=== PATIENT | female | born 1995 | race Caucasian/White ===

== ENCOUNTER 2016-11-10 21:36 | Emergency (ER) | payer BC, MEDICAID ==
--- NOTE | 2016-11-10 21:51 | EDM.PDOC ---
ED HPI GENERAL MEDICAL PROBLEM - General Stated Complaint: 7WEEKS/BLEEDING Time Seen by Provider: 11/10/16 21:51 Source of Information: Reports: Patient History Limitations: Reports: No Limitations - History of Present Illness INITIAL COMMENTS - FREE TEXT/NARRATIVE: HISTORY AND PHYSICAL: History of present illness: [21-year-old female primary proximally 7 weeks by dates now presents emergency department with complaint of vaginal bleeding. Patient states she's having bleeding that's comparable to menstrual bleeding. She is known to be by outpatient test however she has not had any pelvic imaging previously. Patient does not know her blood type her Rh status. She has no history of anemia and no lightheadedness or near syncope. Patient is otherwise asymptomatic. Normal bowel and bladder habits. She has no pain specifically no pelvic pain] patient anticipates care by Dr. Ponce however she has not seen him yet Review of systems: As per history of present illness and below otherwise all systems reviewed and negative. Past medical history: As per history of present illness and as reviewed below otherwise noncontributory. Surgical history: As per history of present illness and as reviewed below otherwise noncontributory. Social history: No reported history of drug or alcohol abuse. Family history: As per history of present illness and as reviewed below otherwise noncontributory. Physical exam: Well-appearing patient smiling and comfortable appearing. No pallor. Normal respiratory rate no tachycardia benign abdomen anterior pelvis. No CVA tenderness normal external HEENT: Normocephalic, atraumatic, pupils normal and symmetrical, supple neck, no meningismus, normal color Lungs: Normal and symmetrical chest wall excursion bilateral with no tachypnea or increased work of breathing, grossly normal chest exam Heart: No tachycardia in triage Abdomen: Normal-appearing, nondistended, no visible mass or asymmetry Pelvis: Normal-appearing Genitourinary: Deferred Rectal exam: Deferred Extremities: Atraumatic, normal use and range of motion, no visible evidence of gross neurovascular compromise Neuro: Awake, alert, oriented. Normal and appropriate mental status. Cranial nerves grossly unremarkable. Motor function normal. Nonfocal neurologic exam. Diagnostics: [Ultrasound pelvis] Therapeutics: [] Impression: [] Plan: [Signs and symptoms consistent with threatened miscarriage versus miscarriage and well-appearing patient. Full workup pending including ultrasound, quantitative hCG, Rh status. Patient has not had any pain as part of her presentation and she has vaginal bleeding only no discharge. Hemoglobin unremarkable. Rh+. Onset of hCG noted. Ultrasound shows 6 weeks 4 day gestation with no heart activity passing blood with subchorionic hemorrhage consistent with incomplete miscarriage. Case discussed with patient' s TURBINE ATTENDANT doctor Dr. Ponce was aware of history and findings and agrees with outpatient follow-up in the next one to 2 days. Patient comfortable and hemodynamically stable on reevaluation prior to discharge and agrees with outpatient follow-up strict return precautions given. Definitive disposition and diagnosis as appropriate pending reevaluation and review of above. - Related Data Allergies Allergy/AdvReac Type Severity Reaction Status Date / Time amoxicillin trihydrate Allergy Rash Verified 11/10/16 22:18 [From Augmentin] Penicillins Allergy Rash Verified 11/10/16 22:18 potassium clavulanate Allergy Rash Verified 11/10/16 22:18 [From Augmentin] Home Meds: Home Meds Albuterol [Take Home: Albuterol 0.083%, 4 Neb Pack] ASDIRECTED PRN 02/04/15 [ History] Fluticasone/Salmeterol [Advair 250-50 Diskus] 2 puff INH BID 02/04/15 [History] Loratadine [Claritin] 10 mg PO DAILY 02/04/15 [History] Montelukast [Singulair] 10 mg PO BEDTIME 02/04/15 [History] Past Medical History - Past Health History Medical/Surgical History: Denies Medical/Surgical History Respiratory History: Reports: Asthma - Past Surgical History HEENT Surgical History: Reports: Tonsillectomy Social & Family History - Family History Family Medical History: Noncontributory HEENT: Reports: None Cardiac: Reports: None Respiratory: Reports: None GI: Reports: None Neurological: Reports: None Psychiatric: Reports: None Dermatologic: Reports: None Oncologic: Reports: None - Tobacco Use Smoking Status *Q: Never Smoker Second Hand Smoke Exposure: No - Recreational Drug Use Recreational Drug Use: No ED ROS GENERAL - Review of Systems Review Of Systems: See Below (History of present illness) ED EXAM, GENERAL - Physical Exam Exam: See Below (History of present illness) Course - Vital Signs Last Recorded V/S: Last Vital Signs Temp 36.7 C 11/10/16 21:44 Pulse 98 11/10/16 21:44 Resp 18 11/10/16 21:44 BP 106/76 11/10/16 21:44 Pulse Ox 96 11/10/16 21:44 - Orders/Labs/Meds Orders: Active Orders 24 hr Category Date Time Status OB Transvaginal [US] Stat Exams 11/10/16 22:07 Taken Labs: Laboratory Tests 11/10/16 11/10/16 11/10/16 Range/Units 22:13 22:13 22:13 Hgb 13.2 (12.0-16.0) g/dL Hct 38.3 (36.0-46.0) % HCG, Quant 42834.7 mIU/mL Blood Type O POSITIVE Departure - Departure Time of Disposition: 00:04 Disposition: Home, Self-Care 01 Condition: Good Clinical Impression: Incomplete miscarriage - Discharge Information Instructions: Miscarriage, [id number] Referrals: Austin Bealsey MD [Primary Care Provider] - Charlie Ponce MD [Family Provider] - Forms: ED Department Discharge Additional Instructions: You are having a miscarriage. Rest and drink plenty of fluids. You are Rh+ which were first your blood type is important for you to remember for future pregnancies. Your hemoglobin or blood level was normal today. Is very important follow-up with Dr. Ponce in the next one to 2 days. Call in the morning for an appointment and return immediately for new severe or worsening symptoms specifically for severe bleeding, uncontrolled pain, fainting, or nearly fainting. - My Orders Last 24 Hours: My Active Orders 11/10/16 22:07 OB Transvaginal [US] Stat - Assessment/Plan Last 24 Hours: My Active Orders 11/10/16 22:07 OB Transvaginal [US] Stat
[2016-11-11 01:01] VITALS: BP 110/70
--- NOTE | 2016-11-11 15:42 | US ---
EXAM DATE: 11/10/16 PATIENT'S AGE: 21 Patient: HARINI SÁNCHEZ Facility: [place], [place] Site . Site : 1996 Study: US OB Pelvis [id number]/[id number] 11:04:25 PM Ordering Physician: Braulio Paz Final Report: INDICATION: BLEEDING EARLY PREG TECHNIQUE: OB ultrasound. COMPARISON: None. FINDINGS : Single intrauterine . Per elevator service technician no cardiac activity recorded. The crown-rump length measures 0.6 cm with an estimated sonographic gestational age of 6 weeks 4 days. The gestational sac is irregularly contoured. Along the inferior aspect of the gestational sac is a subchorionic hemorrhage which measures approximately 1.2 x 1.7 cm. Fluid noted within the cervical canal. Both ovaries are visualized and normal in sonographic appearance aside from a corpus luteal cyst arising from the right ovary. IMPRESSION: Intrauterine . No cardiac activity recorded during the examination. Additionally the gestation sac is irregularly contoured with an associated subchorionic hemorrhage and fluid within the cervical canal. Findings are consistent with an ongoing . Please correlate with serial beta HCG and pelvic ultrasound. Dictated by Camron Kurtz MD @ 11/10/2016 11:22:10 PM Dictated by: Camron Kurtz MD @ 11/10/2016 23:22:34 (Electronic Signature) Report Signed by Proxy. [facility]ID[facility] MEDICAL CENTERGustavo
== END 2016-11-11 00:20 | disposition home or self-care (01) ==
LOC: MW.ED 21:36
DX: O03.4 Incomplete spontaneous abortion without complication (principal); J45.909 Unspecified asthma, uncomplicated; Z88.1 Allergy status to other antibiotic agents; Z88.0 Allergy status to penicillin; Z79.899 Other long term (current) drug therapy
CPT/HCPCS: 36415; 76817; 76817-26; 84702; 85014; 85018; 86900; 86901; 99283; 99284-25

== ENCOUNTER 2016-11-15 10:41 | Day surgery (SDC) | payer BC, MEDICAID ==
[2016-11-15] MEDS ORDERED: Midazolam 1 MG/ML 2 ML SDV ONE (10:49)
[2016-11-15] MEDS ORDERED: Lidocaine 2% 5 ML SDV ONE (10:49)
[2016-11-15] MEDS ORDERED: fentaNYL 100 MCG/2 ML SDV ONE ×2 (10:49→10:50)
[2016-11-15] MEDS ORDERED: Propofol 200 MG/20 ML SDV ONE (10:49)
[2016-11-15] MEDS ORDERED: Lactated Ringers 1,000 ML IV SCH (12:00)
--- NOTE | 2016-11-15 12:16 | PCM.PREANE ---
Preanesthetic Assessment - Anesthesia/Transfusion/Family Hx Anesthesia History: Prior Anesthesia Without Reaction Family History of Anesthesia Reaction: No Transfusion History: No Prior Transfusion(s) - Review of Systems General: No Symptoms Pulmonary: No Symptoms Cardiovascular: No Symptoms Gastrointestinal: No Symptoms Neurological: No Symptoms Other: Reports: None - Physical Assessment NPO Status Date: 11/14/16 O2 Sat by Pulse Oximetry: 97 Respiratory Rate: 16 Vital Signs: Last Vital Signs Temp 36.3 C 11/15/16 11:49 Pulse 81 11/15/16 11:49 Resp 16 11/15/16 11:49 BP 114/65 11/15/16 11:49 Pulse Ox 97 11/15/16 11:49 Height: 1.6 m Weight: 116.12 kg ASA Class: 2 Mental Status: Alert & Oriented x3 Dentition: Reports: Normal Dentition ROM/Head Extension: Full Lungs: Clear to Auscultation, Normal Respiratory Effort Cardiovascular: Regular Rate, Regular Rhythm - Allergies Allergies/Adverse Reactions: Allergies Allergy/AdvReac Type Severity Reaction Status Date / Time amoxicillin trihydrate Allergy Rash Verified 11/10/16 22:18 [From Augmentin] Penicillins Allergy Rash Verified 11/10/16 22:18 potassium clavulanate Allergy Rash Verified 11/10/16 22:18 [From Augmentin] - Blood Blood Available: Yes - Acknowledgements Anesthesia Type Planned: General Anesthesia, MAC (asthma, [place]) Pt an Appropriate Candidate for the Planned Anesthesia: Yes Alternatives and Risks of Anesthesia Discussed w Pt/Guardian: Yes Pt/Guardian Understands and Agrees with Anesthesia Plan: Yes PreAnesthesia Questionnaire - Past Health History Medical/Surgical History: Denies Medical/Surgical History HEENT History: Reports: Allergic Rhinitis, Other (See Below) Other HEENT History: wears glasses Respiratory History: Reports: Asthma Other Respiratory History: Seasonal Allergies Other OB/BYN History: no previous pregnancies, miscarriage at present Psychiatric History: Endocrine/Metabolic History: Reports: Obesity/BMI 30+ - Past Surgical History Head Surgeries/Procedures: Reports: None HEENT Surgical History: Reports: Tonsillectomy - SUBSTANCE USE Smoking Status *Q: Never Smoker Second Hand Smoke Exposure: No Recreational Drug Use History: No - HOME MEDS Home Medications: Home Meds Fluticasone/Salmeterol [Advair 250-50 Diskus] 1 puff INH BID 02/04/15 [History] Loratadine [Claritin] 10 mg PO DAILY 02/04/15 [History] Montelukast [Singulair] 10 mg PO BEDTIME 02/04/15 [History] Albuterol [IMW: Albuterol HFA] 2 puff INH ASDIRECTED PRN 11/15/16 [History] - CURRENT (IN HOUSE) MEDS Current Meds: Current Medications Lactated Ringer's (Ringers, Lactated) 1,000 mls @ 100 mls/hr IV ASDIRECTED JEAN Discontinued Medications Fentanyl (Sublimaze) Confirm Administered Dose 100 mcg .ROUTE .STK-MED ONE Stop: 11/15/16 10:50 Fentanyl (Sublimaze) Confirm Administered Dose 100 mcg .ROUTE .STK-MED ONE Stop: 11/15/16 10:51 Lidocaine (Xylocaine-Mpf 2%) Confirm Administered Dose 10 ml .ROUTE .STK-MED ONE Stop: 11/15/16 10:50 Midazolam HCl (Versed 1 Mg/Ml) Confirm Administered Dose 2 mg .ROUTE .STK-MED ONE Stop: 11/15/16 10:50 Propofol (Diprivan 20 Ml) Confirm Administered Dose 400 mg .ROUTE .STK-MED ONE Stop: 11/15/16 10:50
[2016-11-15] MEDS ORDERED: Acetaminophen/oxyCODONE 325-5 MG Tab PO PRN ×2 (12:38)
[2016-11-15] MEDS ORDERED: Morphine 4 MG/ML Syringe IVPUSH PRN (12:38)
[2016-11-15] MEDS ORDERED: Ketorolac 30 MG/ML SDV IVPUSH ONE (12:38)
[2016-11-15] MEDS ORDERED: Morphine 2 MG/ML Syringe IVPUSH PRN (12:38)
[2016-11-15] MEDS ORDERED: Ondansetron 4 MG/2 ML SDV IVPUSH PRN (12:38)
[2016-11-15] MEDS ORDERED: Promethazine 25 MG/ML SDV IM PRN (12:38)
--- NOTE | 2016-11-15 12:43 | PCM.OPNOTE ---
- General Post-Op/Procedure Note Date of Surgery/Procedure: 11/15/16 Operative Procedure(s): D&E Pre Op Diagnosis: Blighted ovum Post-Op Diagnosis: Same Anesthesia Technique: General LMA Primary Surgeon: Charlie Ponce EBL in mLs: 100 Complications: None Condition: Good Free Text/Narrative:: Intake & Output 11/14/16 11/15/16 11/15/16 22:59 06:59 14:59 Output Total 30 Balance -30
--- NOTE | 2016-11-15 12:44 | PCM.DCSUM1 ---
Discharge Summary - Discharge Data Discharge Date: 11/15/16 Discharge Disposition: Home, Self-Care 01 Condition: Good - Patient Summary/Data Operative Procedure(s) Performed: D&E - Patient Instructions Diet: Usual Diet as Tolerated Activity: As Tolerated Driving: Do Not Drive Showering/Bathing: June Shower Notify Provider of: Fever, Increased Pain - Discharge Plan Home Medications: Home Meds Fluticasone/Salmeterol [Advair 250-50 Diskus] 1 puff INH BID 02/04/15 [History] Loratadine [Claritin] 10 mg PO DAILY 02/04/15 [History] Montelukast [Singulair] 10 mg PO BEDTIME 02/04/15 [History] Albuterol [IMW: Albuterol HFA] 2 puff INH ASDIRECTED PRN 11/15/16 [History] - General Info Date of Service: 11/15/16 Functional Status: Reports: Pain Controlled - Review of Systems General: Reports: No Symptoms HEENT: Reports: No Symptoms Pulmonary: Reports: No Symptoms Cardiovascular: Reports: No Symptoms Gastrointestinal: Reports: No Symptoms Genitourinary: Reports: No Symptoms Musculoskeletal: Reports: No Symptoms Skin: Reports: No Symptoms Neurological: Reports: No Symptoms Psychiatric: Reports: No Symptoms - Patient Data Vitals - Most Recent: Last Vital Signs Temp 36.3 C 11/15/16 11:49 Pulse 81 11/15/16 11:49 Resp 16 11/15/16 12:16 BP 114/65 11/15/16 11:49 Pulse Ox 97 11/15/16 12:16 Weight - Most Recent: 116.12 kg I&O - Last 24 hours: Intake & Output 11/14/16 11/15/16 11/15/16 22:59 06:59 14:59 Output Total 30 Balance -30 Lab Results - Last 24 hrs: Laboratory Results - last 24 hr 11/15/16 Range/Units 12:13 WBC 9.63 (4.0-11.0) K/uL RBC 4.37 (4.30-5.90) M/uL Hgb 13.1 (12.0-16.0) g/dL Hct 37.5 (36.0-46.0) % MCV 85.8 (80.0-98.0) fL MCH 30.0 (27.0-32.0) pg MCHC 34.9 (31.0-37.0) g/dL RDW Std Deviation 39.3 (28.0-62.0) fl RDW Coeff of Haim 13 (11.0-15.0) % Plt Count 225 (150-400) K/uL MPV 9.30 (7.40-12.00) fL Nucleated RBC % 0.0 /100WBC Nucleated RBCs # 0 K/uL Med Orders - Current: Current Medications Lactated Ringer's (Ringers, Lactated) 1,000 mls @ 100 mls/hr IV ASDIRECTED JEAN Ketorolac Tromethamine (Toradol) 30 mg IVPUSH Q6H PRN PRN Reason: Pain (severe 7-10) Stop: 11/20/16 18:01 Morphine Sulfate (Morphine) 2 mg IVPUSH Q2H PRN PRN Reason: Pain (severe 7-10) Morphine Sulfate (Morphine) 4 mg IVPUSH Q2H PRN PRN Reason: Pain (severe 7-10) Ondansetron HCl (Zofran) 4 mg IVPUSH Q6H PRN PRN Reason: Nausea/Vomiting Oxycodone/Acetaminophen (Percocet 325-5 Mg) 1 tab PO Q4H PRN PRN Reason: Pain (moderate 4-6) Oxycodone/Acetaminophen (Percocet 325-5 Mg) 2 tab PO Q4H PRN PRN Reason: Pain (moderate 4-6) Promethazine HCl (Phenergan) 25 mg IM Q6H PRN PRN Reason: Nausea/Vomiting Discontinued Medications Fentanyl (Sublimaze) Confirm Administered Dose 100 mcg .ROUTE .STK-MED ONE Stop: 11/15/16 10:50 Fentanyl (Sublimaze) Confirm Administered Dose 100 mcg .ROUTE .STK-MED ONE Stop: 11/15/16 10:51 Ketorolac Tromethamine (Toradol) 30 mg IVPUSH ONETIME ONE Stop: 11/15/16 12:39 Lidocaine (Xylocaine-Mpf 2%) Confirm Administered Dose 10 ml .ROUTE .STK-MED ONE Stop: 11/15/16 10:50 Midazolam HCl (Versed 1 Mg/Ml) Confirm Administered Dose 2 mg .ROUTE .STK-MED ONE Stop: 11/15/16 10:50 Propofol (Diprivan 20 Ml) Confirm Administered Dose 400 mg .ROUTE .[facility]-MED ONE Stop: 11/15/16 10:50 - Exam General: Reports: Alert, Oriented HEENT: Reports: Pupils Equal, Pupils Reactive, EOMI, Mucous Membr. Moist/[place] Neck: Reports: Supple Lungs: Reports: Clear to Auscultation, Normal Respiratory Effort Cardiovascular: Reports: Regular Rate, Regular Rhythm GI/Abdominal Exam: Normal Bowel Sounds, Soft, Non-Tender, No Organomegaly, No Distention, No Abnormal Bruit, No Mass, Pelvis Stable (Female) Exam: Normal External Exam, Normal Speculum Exam, Normal Bimanual Exam Rectal (Female) Exam: Normal Exam, Normal Rectal Tone Back Exam: Reports: Normal Inspection, Full Range of Motion Extremities: Normal Inspection, Normal Range of Motion, Non-Tender, No Pedal Edema, Normal Capillary Refill Skin: Reports: Warm, Dry, Intact Wound/Incisions: Reports: Healing Well Neurological: Reports: No New Focal Deficit Psy/Mental Status: Reports: Alert, Normal Affect, Normal Mood *Q Meaningful Use (DIS) - VTE *Q VTE Criteria *Q: - Stroke *Q Stroke Criteria *Q: - AMI *Q AMI Criteria *Q:
--- NOTE | 2016-11-15 13:12 | PCM.POSTAN ---
POST ANESTHESIA ASSESSMENT - MENTAL STATUS Mental Status: Alert, Oriented - RESPIRATORY Respiratory Status: Respiratory Rate WNL, Airway Patent, O2 Saturation Stable - CARDIOVASCULAR CV Status: Pulse Rate WNL, Blood Pressure Stable - GASTROINTESTINAL GI Status: No Symptoms - PAIN Pain Score: 0 - POST OP HYDRATION Hydration Status: Adequate & Stable
--- NOTE | 2016-11-15 13:22 | PCM48HPAN ---
Post Anesthesia Note - EVALUATION WITHIN 48HRS OF ANESTHETIC Vital Signs in Normal Range: Yes Patient Participated in Evaluation: Yes Respiratory Function Stable: Yes Airway Patent: Yes Cardiovascular Function Stable: Yes Hydration Status Stable: Yes Pain Control Satisfactory: Yes Nausea and Vomiting Control Satisfactory: Yes Mental Status Recovered: Yes
[2016-11-15 14:04] VITALS: BP 118/69
[2016-11-15] MEDS ORDERED: Ketorolac 30 MG/ML SDV IVPUSH PRN (18:00)
--- NOTE | 2016-11-15 20:19 | OR ---
SURGEON: Charlie Ponce MD DATE OF PROCEDURE: 11/15/2016 PREOPERATIVE DIAGNOSIS: Blighted ovum. POSTOPERATIVE DIAGNOSIS: Blighted ovum. OPERATION PERFORMED: Dilatation and evacuation. EDGE TRIMMER: OR tech. ANESTHESIA: General LMA, Emmy Coffman. ESTIMATED BLOOD LOSS: 100 mL. COMPLICATION: None. FINDINGS: Products of conception. INDICATIONS FOR SURGERY: This patient is 21, she is seen by our nurse risk developer. She had repeated ultrasound, confirmed pole, no cardiac activity. She was seen in the ER for this same problem when she had an ultrasound and she had confirmed blighted ovum. The patient elected to have a D and E. PROCEDURE IN DETAIL: The patient was brought to the OR, properly identified, and after adequate level of anesthesia, the patient was placed in lithotomy position. Prepped and draped in sterile fashion as usual. Straight catheter was used to empty the bladder and then speculum placed in the vagina and the cervix was identified and grasped with a single-tooth tenaculum and sequentially dilated to accommodate #7 cannula. The cannula placed in the endometrial cavity and the endometrial cavity evacuated completely in uniformity from all products of conception. Once this was done, then small curette was taken to making sure that the uterus was empty. Once we ascertained that the uterus was empty, then the procedure is ended. Instruments and sponge counts were correct. The patient tolerated the procedure well, went to recovery room in stable general condition. BETTY / CLEMENCIA /[id number]
== END 2016-11-15 14:38 | disposition home or self-care (01) ==
LOC: MW.SDS 10:41
PROVIDERS: ATTEND Obstetrics & Gynecology
DX: O02.0 Blighted ovum and nonhydatidiform mole (principal); J45.909 Unspecified asthma, uncomplicated; Z79.51 Long term (current) use of inhaled steroids; Z79.899 Other long term (current) drug therapy; Z88.0 Allergy status to penicillin; Z88.1 Allergy status to other antibiotic agents; Z90.89 Acquired absence of other organs
CPT/HCPCS: 36415; 59820; 85027; 86850; 86900; 86901; J2250; J3010; 00940; 88305; J2704

== ENCOUNTER 2017-04-06 10:34 | Emergency (ER) | payer BC, MEDICAID ==
[2017-04-06] MEDS ORDERED: Sodium Chloride 0.9% 2.5 ML Syringe FLUSH PRN (10:37)
[2017-04-06] MEDS ORDERED: Sodium Chloride 0.9% 10 ML Syringe FLUSH PRN (10:37)
--- NOTE | 2017-04-06 10:38 | EDM.PDOC ---
ED HPI GENERAL MEDICAL PROBLEM - General Stated Complaint: POSSIBLE AND BLEEDING Time Seen by Provider: 04/06/17 10:36 Source of Information: Reports: Patient History Limitations: Reports: No Limitations - History of Present Illness INITIAL COMMENTS - FREE TEXT/NARRATIVE: HISTORY AND PHYSICAL: []21-year-old female who took a test yesterday and had some spotting today History of Present Illness: []Patient admits history of marijuana use has not used since yesterday as now she's . Expresses concern that the spotting. Review of Systems: As per history of present illness and below otherwise all systems reviewed and negative. Past medical history: As per history of present illness and as reviewed below otherwise noncontributory. Surgical history: As per history of present illness and as reviewed below otherwise noncontributory. Social history: No reported history of drug or alcohol abuse. Family history: As per history of present illness and as reviewed below otherwise noncontributory. Physical exam: Alert female answering questions appropriately in full sentences without any shortness of breath denying any abdominal pain HEENT: Atraumatic, normocehpalic, pupils reactive, negative for conjunctival pallor or scleral icterus, mucous membranes moist, throat clear, neck supple, nontender, trachea midline. Lungs: Clear to auscultation, breath sounds equal bilaterally, chest non tender. Heart: S1S2, regular, negative for clicks, rubs, or JVD. Abdomen: Soft, nondistended, nontender. Negative for masses or hepatossplenmegaly. Negative for costovertebral tenderness. Pelvis: Stable nontender. Genitourinary: Deferred. Rectal: Deferred Extremities: Atraumatic, negative for cords or calf pain. Neurovascular unremarkable. Neuro: Awake, alert, oriented. Cranial nerves II through XII unremarkable. Cerebellum unremarkable. Motor and sensory unremarkable throughout. Exam nonfocal. Discussed with patient. Intrauterine small free fluid. Approximate dates of 5 weeks 6 days. EDC December 01, 2017. Blood type is O+ on her previous documentation. Diagnostics: [Transvaginal ultrasound UA Genitalia hCG] Therapeutics: [] Impression: [Intrauterine ] Plan: [Discharged home Follow up with your primary care] Definitive disposition and diagnosis as appropriate pending reevaluation and review of above. Onset: Today, Sudden Duration: Minutes: Quality: Reports: Other (none) Severity: Mild Improves with: Reports: None Worsens with: Reports: None - Related Data Allergies Allergy/AdvReac Type Severity Reaction Status Date / Time amoxicillin trihydrate Allergy Rash Verified 04/06/17 10:42 [From Augmentin] Penicillins Allergy Rash Verified 04/06/17 10:42 potassium clavulanate Allergy Rash Verified 04/06/17 10:42 [From Augmentin] Home Meds: Home Meds Fluticasone/Salmeterol [Advair 250-50 Diskus] 1 puff INH BID 02/04/15 [History] Loratadine [Claritin] 10 mg PO DAILY 02/04/15 [History] Montelukast [Singulair] 10 mg PO BEDTIME 02/04/15 [History] Albuterol [IMW: Albuterol HFA] 2 puff INH ASDIRECTED PRN 11/15/16 [History] Past Medical History - Past Health History Medical/Surgical History: Denies Medical/Surgical History HEENT History: Reports: Allergic Rhinitis, Other (See Below) Other HEENT History: wears glasses Respiratory History: Reports: Asthma Other Respiratory History: Seasonal Allergies Other OB/BYN History: no previous pregnancies, miscarriage at present Psychiatric History: Endocrine/Metabolic History: Reports: Obesity/BMI 30+ - Past Surgical History Head Surgeries/Procedures: Reports: None HEENT Surgical History: Reports: Tonsillectomy Social & Family History - Family History Family Medical History: Noncontributory HEENT: Reports: None Cardiac: Reports: None Respiratory: Reports: None GI: Reports: None Neurological: Reports: None Psychiatric: Reports: None Dermatologic: Reports: None Oncologic: Reports: None - Tobacco Use Smoking Status *Q: Never Smoker Second Hand Smoke Exposure: No - Caffeine Use Caffeine Use: Reports: Soda - Recreational Drug Use Recreational Drug Use: No ED ROS GENERAL - Review of Systems Review Of Systems: ROS reveals no pertinent complaints other than HPI. ED EXAM, GENERAL - Physical Exam Exam: See Below (see dictation) Course - Vital Signs Last Recorded V/S: Last Vital Signs Temp 36.2 C 04/06/17 10:42 Pulse 91 04/06/17 10:42 Resp 18 04/06/17 10:42 BP 84/66 L 04/06/17 10:42 Pulse Ox 97 04/06/17 10:42 - Orders/Labs/Meds Orders: Active Orders 24 hr Category Date Time Status OB Transvaginal [US] Stat Exams 04/06/17 10:39 Ordered HCG QUANTITATIVE,SERUM [CHEM] Stat Lab 04/06/17 12:26 Ordered Sodium Chloride 0.9% [Saline Flush] Med 04/06/17 10:37 Active 10 ml FLUSH ASDIRECTED PRN Sodium Chloride 0.9% [Saline Flush] Med 04/06/17 10:37 Active 2.5 ml FLUSH ASDIRECTED PRN Saline Lock Insert [OM.PC] Stat Oth 04/06/17 10:36 Ordered Medication Orders Sodium Chloride (Saline Flush) 10 ml FLUSH ASDIRECTED PRN PRN Reason: Keep Vein Open Sodium Chloride (Saline Flush) 2.5 ml FLUSH ASDIRECTED PRN PRN Reason: Keep Vein Open Labs: Laboratory Tests 04/06/17 04/06/17 04/06/17 Range/Units 10:47 10:47 11:39 WBC 6.55 (4.0-11.0) K/uL RBC 4.18 L (4.30-5.90) M/uL Hgb 12.5 (12.0-16.0) g/dL Hct 35.7 L (36.0-46.0) % MCV 85.4 (80.0-98.0) fL MCH 29.9 (27.0-32.0) pg MCHC 35.0 (31.0-37.0) g/dL RDW Std Deviation 42.5 (28.0-62.0) fl RDW Coeff of Haim 14 (11.0-15.0) % Plt Count 234 (150-400) K/uL MPV 8.80 (7.40-12.00) fL Neut % (Auto) 59.2 (48.0-80.0) % Lymph % (Auto) 30.8 (16.0-40.0) % [place] % (Auto) 5.8 (0.0-15.0) % Eos % (Auto) 3.4 (0.0-7.0) % Baso % (Auto) 0.8 (0.0-1.5) % Neut # (Auto) 3.9 (1.4-5.7) K/uL Lymph # (Auto) 2.0 (0.6-2.4) K/uL [place] # (Auto) 0.4 (0.0-0.8) K/uL Eos # (Auto) 0.2 (0.0-0.7) K/uL Baso # (Auto) 0.1 (0.0-0.1) K/uL Nucleated RBC % 0.0 /100WBC Nucleated RBCs # 0 K/uL Sodium 138 (136-146) mmol/L Potassium 3.8 (3.5-5.1) mmol/L Chloride 109 (98-110) mmol/L Carbon Dioxide 19 L (21-31) mmol/L BUN 13 (6.0-23.0) mg/dL Creatinine 0.7 (0.6-1.5) mg/dL Est Cr Clr Drug Dosing 106.05 mL/min Estimated GFR (MDRD) > 60.0 ml/min Glucose 81 (60-110) mg/dL Calcium 9.0 (8.8-10.8) mg/dL Total Bilirubin 0.5 (0.1-1.5) mg/dL AST 15 (5-40) IU/L ALT 22 (8-54) IU/L Alkaline Phosphatase 83 (40-150) Total Protein 6.4 (6.0-8.0) g/dL Albumin 3.9 (3.5-5.0) g/dL Globulin 2.5 (2.0-3.5) g/dL Albumin/Globulin Ratio 1.6 (1.3-2.8) Urine Color YELLOW Urine Appearance CLEAR Urine pH 6.5 (5.0-8.0) Ur Specific [place] 1.010 (1.001-1.035) Urine Protein NEGATIVE (NEGATIVE) mg/dL Urine Glucose (UA) NEGATIVE (NEGATIVE) mg/dL Urine Ketones NEGATIVE (NEGATIVE) mg/dL Urine Occult Blood SMALL H (NEGATIVE) Urine Nitrite NEGATIVE (NEGATIVE) Urine Bilirubin NEGATIVE (NEGATIVE) Urine Urobilinogen 0.2 (<2.0) EU/dL Ur Leukocyte Esterase NEGATIVE (NEGATIVE) Urine RBC 0-2 (0-2/HPF) Urine WBC 2-4 (0-5/HPF) Ur Epithelial Cells FEW (NONE-FEW) Urine Bacteria FEW (NEGATIVE) Meds: Medications Generic Name Dose Route Start Last Admin Trade Name Freq PRN Reason Stop Dose Admin Sodium Chloride 10 ml 04/06/17 10:37 Saline Flush FLUSH ASDIRECTED PRN Keep Vein Open Sodium Chloride 2.5 ml 04/06/17 10:37 Saline Flush FLUSH ASDIRECTED PRN Keep Vein Open Departure - Departure Time of Disposition: 12:33 Disposition: Home, Self-Care 01 Condition: Good Clinical Impression: Intrauterine - Discharge Information Instructions: First Trimester of , [id number] Additional Instructions: The following information is given to patients seen in the emergency department who are being discharged to home. This information is to outline your options for follow-up care. We provide all patients seen in our emergency department with a follow-up referral. The need for follow-up, as well as the timing and circumstances, are variable depending upon the specifics of your emergency department visit. If you don't have a primary care physician on staff, we will provide you with a referral. We always advise you to contact your personal physician following an emergency department visit to inform them of the circumstance of the visit and for follow-up with them and/or the need for any referrals to a consulting specialist. The emergency department will also refer you to a specialist when appropriate. This referral assures that you have the opportunity for followup care with a specialist. All of these measure are taken in an effort to provide you with optimal care, which includes your followup. Under all circumstances we always encourage you to contact your private physician who remains a resource for coordinating your care. When calling for followup care, please make the office aware that this follow-up is from your recent emergency room visit. If for any reason you are refused follow-up, please contact the [facility] emergency department at and asked to speak to the emergency department charge nurse. Follow up with your primary care provider next week SHe had a intrauterine by ultrasound EDC December 01, 2017 Recommend [id number] vitamins daily - My Orders Last 24 Hours: My Active Orders 04/06/17 10:36 Saline Lock Insert [OM.PC] Stat 04/06/17 10:37 Sodium Chloride 0.9% [Saline Flush] 10 ml FLUSH ASDIRECTED PRN Sodium Chloride 0.9% [Saline Flush] 2.5 ml FLUSH ASDIRECTED PRN 04/06/17 10:39 OB Transvaginal [US] Stat 04/06/17 12:26 HCG QUANTITATIVE,SERUM [CHEM] Stat - Assessment/Plan Last 24 Hours: My Active Orders 04/06/17 10:36 Saline Lock Insert [OM.PC] Stat 04/06/17 10:37 Sodium Chloride 0.9% [Saline Flush] 10 ml FLUSH ASDIRECTED PRN Sodium Chloride 0.9% [Saline Flush] 2.5 ml FLUSH ASDIRECTED PRN 04/06/17 10:39 OB Transvaginal [US] Stat 04/06/17 12:26 HCG QUANTITATIVE,SERUM [CHEM] Stat
[2017-04-06 10:44] VITALS: BP 84/66
[2017-04-06 11:13] LABS: CHLORIDE,CL 109 mmol/L (98-110); SODIUM,NA 138 mmol/L (136-146)
--- NOTE | 2017-04-07 11:39 | US ---
EXAM DATE: 04/06/17 PATIENT'S AGE: 21 Patient: HARINI SÁNCHEZ Facility: [place], [place] Site . Site : 1995 Study: US OB Pelvis ob transvag [id number]/25/2018 12:35:33 PM Ordering Physician: Doctor Silva Final Report: HISTORY: Vaginal bleeding. TECHNIQUE: Transabdominal and transvaginal obstetrical ultrasound. COMPARISON: No prior. FINDINGS: There is a living single intrauterine gestation with crown-rump length of 2 mm. This correlates with a 5 week, 6 day gestation with an TYRELL based on ultrasound measurements of 11/30/2017. heart rate is 112 beats per minute. Normal- appearing yolk sac. 4-5 mm hypoechoic area inferior to the gestational sac may reflect a very small subchorionic bleed (image #13). - 4.2 x 3.5 x 4.1 cm unilocular right ovarian cyst is present. There is blood flow detected within the right ovary without findings of torsion. Left ovary is unremarkable. IMPRESSION: 1. Living single intrauterine gestation at 5 weeks, 6 days based on ultrasound measurements. 2. 4-5 mm hypoechoic area inferior to the gestational sac may reflect a very small subchorionic bleed (image #13). 3. 4.2 cm unilocular right ovarian cyst. Blood flow detected within the right ovary without findings of torsion. Dictated by Elmer Harper MD @ 04/06/2017 1:15:13 PM Dictated by: Elmer Harper MD @ 04/06/2017 13:15:18 (Electronic Signature) Report Signed by Proxy. MTDD
== END 2017-04-06 12:42 | disposition home or self-care (01) ==
LOC: MW.ED 10:34
DX: O26.851 Spotting complicating pregnancy, first trimester (principal); O99.511 Diseases of the respiratory system complicating pregnancy, first trimester; J45.909 Unspecified asthma, uncomplicated; Z88.0 Allergy status to penicillin; Z88.1 Allergy status to other antibiotic agents; Z3A.01 Less than 8 weeks gestation of pregnancy
CPT/HCPCS: 36415; 76817; 76817-26; 80053; 81001; 84702; 85025; 99282; 99284-25

== ENCOUNTER 2017-04-13 10:34 | Emergency (ER) | payer BC, MEDICAID ==
[2017-04-13 10:50] VITALS: BP 133/65
--- NOTE | 2017-04-13 11:10 | EDM.PDOC ---
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 She states that she is 6 weeks with LMP February 24, 2017. She was seen in the ER 1 week ago with complaints of vaginal bleeding and has seen Dr. Ponce in the interim. She woke up this morning and noticed that her bleeding is heavier and darker red. She has passed 1 small clot. She is having lower abdominal cramping, which are stronger than regular menstrual cramps. No fever or chills. No chest pain, shortness of breath or difficulty breathing. No nausea or vomiting. Ultrasound of 04/06/2017 shows a single intrauterine measuring 5 weeks, 6 days, small cyst on right ovary, possible small subchorionic bleed. Patient had a blood type drawn previously and results are O+. ] Review of systems: As per history of present illness and below otherwise all systems reviewed and negative. Past medical history: As per history of present illness and as reviewed below otherwise noncontributory. Surgical history: As per history of present illness and as reviewed below otherwise noncontributory. Social history: No reported history of drug or alcohol abuse. Family history: As per history of present illness and as reviewed below otherwise noncontributory. Physical exam: HEENT: Atraumatic, normocephalic. Oral mucous members are pink and moist. Lungs: Clear to auscultation, breath sounds equal bilaterally. Heart: S1S2, regular rate and rhythm. Abdomen: Obese, Soft, nondistended, nontender. Pelvis: Stable nontender. Genitourinary: Deferred. Rectal: Deferred. Extremities: Atraumatic.Neurovascular unremarkable. Neuro: Awake, alert, oriented. Motor and sensory unremarkable throughout. Exam nonfocal. Diagnostics: [CBC, UA, quantitative hCG, first trimester OB ultrasound] Impression: [Normal intrauterine vaginal bleeding] Plan: [Discussed with patient that her ultrasound is normal and shows a gestational age of 7 weeks 2 days plus or minus a week. Appropriate interval growth and a stable simple cyst to her right ovary. Encouraged her to follow-up with Dr. Ponce early this week. She is in agreement with today's plan all questions are answered and concerns are addressed.] Definitive disposition and diagnosis as appropriate pending reevaluation and review of above. lower abdominal pain Pain Score (Numeric/FACES): 7 - Related Data Allergies Allergy/AdvReac Type Severity Reaction Status Date / Time amoxicillin trihydrate Allergy Rash Verified 04/13/17 10:46 [From Augmentin] Penicillins Allergy Rash Verified 04/13/17 10:46 potassium clavulanate Allergy Rash Verified 04/13/17 10:46 [From Augmentin] Home Meds: Home Meds Fluticasone/Salmeterol [Advair 250-50 Diskus] 1 puff INH BID 02/04/15 [History] Loratadine [Claritin] 10 mg PO DAILY 02/04/15 [History] Montelukast [Singulair] 10 mg PO BEDTIME 02/04/15 [History] Albuterol [IMW: Albuterol HFA] 2 puff INH ASDIRECTED PRN 11/15/16 [History] Vit W-Ca,Fe,FA(<1 mg) [ Vitamins] 1 each PO DAILY 04/13/17 [ History] Past Medical History - Past Health History Medical/Surgical History: Denies Medical/Surgical History HEENT History: Reports: Allergic Rhinitis, Other (See Below) Other HEENT History: wears glasses Cardiovascular History: Reports: None Respiratory History: Reports: Asthma, Other (See Below) Other Respiratory History: Seasonal Allergies Gastrointestinal History: Reports: None Genitourinary History: Reports: None 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) Other OB/BYN History: Musculoskeletal History: Reports: None Neurological History: Reports: None Psychiatric History: Endocrine/Metabolic History: Reports: Obesity/BMI 30+ Hematologic History: Reports: None Immunologic History: Reports: None Oncologic (Cancer) History: Reports: None Dermatologic History: Reports: None - Past Surgical History Head Surgeries/Procedures: Reports: None HEENT Surgical History: Reports: Tonsillectomy Cardiovascular Surgical History: Reports: None GI Surgical History: Reports: None Female Surgical History: Reports: None, Other (See Below) Other Female Surgeries/Procedures: D & C Neurological Surgical History: Reports: None Musculoskeletal Surgical History: Reports: None Oncologic Surgical History: Reports: None Dermatological Surgical History: Reports: None Social & Family History - Family History Family Medical History: Noncontributory HEENT: Reports: None Cardiac: Reports: None Respiratory: Reports: None GI: Reports: None Neurological: Reports: None Psychiatric: Reports: None Dermatologic: Reports: None Oncologic: Reports: None - Tobacco Use Smoking Status *Q: Never Smoker Second Hand Smoke Exposure: No - Caffeine Use Caffeine Use: Reports: None - Recreational Drug Use Recreational Drug Use: No Drug Use in Last 12 Months: No Recreational Drug Type: Reports: Marijuana/Hashish ED ROS GENERAL - Review of Systems Review Of Systems: ROS reveals no pertinent complaints other than HPI. ED EXAM - Physical Exam Exam: See Below Course - Vital Signs Last Recorded V/S: Last Vital Signs Temp 98.3 F 04/13/17 10:47 Pulse 106 H 04/13/17 10:47 Resp 16 04/13/17 10:47 BP 133/65 04/13/17 10:47 Pulse Ox 96 04/13/17 10:47 - Orders/Labs/Meds Orders: Active Orders 24 hr Category Date Time Status OB 1st Tri Sgl 1st Gest [US] Stat Exams 04/13/17 11:03 Taken Labs: Laboratory Tests 04/13/17 04/13/17 04/13/17 Range/Units 11:15 11:15 11:32 WBC 8.38 (4.0-11.0) K/uL RBC 4.23 L (4.30-5.90) M/uL Hgb 12.4 (12.0-16.0) g/dL Hct 36.3 (36.0-46.0) % MCV 85.8 (80.0-98.0) fL MCH 29.3 (27.0-32.0) pg MCHC 34.2 (31.0-37.0) g/dL RDW Std Deviation 42.3 (28.0-62.0) fl RDW Coeff of Haim 14 (11.0-15.0) % Plt Count 258 (150-400) K/uL MPV 9.10 (7.40-12.00) fL Neut % (Auto) 67.4 (48.0-80.0) % Lymph % (Auto) 23.4 (16.0-40.0) % [place] % (Auto) 6.0 (0.0-15.0) % Eos % (Auto) 2.7 (0.0-7.0) % Baso % (Auto) 0.5 (0.0-1.5) % Neut # (Auto) 5.7 (1.4-5.7) K/uL Lymph # (Auto) 2.0 (0.6-2.4) K/uL [place] # (Auto) 0.5 (0.0-0.8) K/uL Eos # (Auto) 0.2 (0.0-0.7) K/uL Baso # (Auto) 0.0 (0.0-0.1) K/uL Nucleated RBC % 0.0 /100WBC Nucleated RBCs # 0 K/uL HCG, Quant 72949.0 mIU/mL Urine Color YELLOW Urine Appearance CLEAR Urine pH 7.0 (5.0-8.0) Ur Specific [place] 1.020 (1.001-1.035) Urine Protein NEGATIVE (NEGATIVE) mg/dL Urine Glucose (UA) NEGATIVE (NEGATIVE) mg/dL Urine Ketones NEGATIVE (NEGATIVE) mg/dL Urine Occult Blood TRACE-INTACT (NEGATIVE) Urine Nitrite NEGATIVE (NEGATIVE) Urine Bilirubin NEGATIVE (NEGATIVE) Urine Urobilinogen 0.2 (<2.0) EU/dL Ur Leukocyte Esterase NEGATIVE (NEGATIVE) Urine RBC 1-3 (0-2/HPF) Urine WBC 0-1 (0-5/HPF) Ur Epithelial Cells RARE (NONE-FEW) Urine Bacteria RARE (NEGATIVE) Urine Mucus LIGHT (NONE-MOD) Departure - Departure Time of Disposition: 12:55 Disposition: Home, Self-Care 01 Condition: Good Clinical Impression: Vaginal bleeding in patient at less than 20 weeks gestation - Discharge Information Referrals: Megan Todd CNM [Primary Care Provider] - Forms: ED Department Discharge Additional Instructions: The following information is given to patients seen in the emergency department who are being discharged to home. This information is to outline your options for follow-up care. We provide all patients seen in our emergency department with a follow-up referral. The need for follow-up, as well as the timing and circumstances, are variable depending upon the specifics of your emergency department visit. If you don't have a primary care physician on staff, we will provide you with a referral. We always advise you to contact your personal physician following an emergency department visit to inform them of the circumstance of the visit and for follow-up with them and/or the need for any referrals to a consulting specialist. The emergency department will also refer you to a specialist when appropriate. This referral assures that you have the opportunity for follow-up care with a specialist. All of these measure are taken in an effort to provide you with optimal care, which includes your follow-up. Under all circumstances we always encourage you to contact your private physician who remains a resource for coordinating your care. When calling for follow-up care, please make the office aware that this follow-up is from your recent emergency room visit. If for any reason you are refused follow-up, please contact the [facility] emergency department at and asked to speak to the emergency department charge nurse. [facility] Primary care - Women's Health [address] [place] [address] Follow-up with your OB at the clinic listed above early next week. Push fluids, continue to monitor symptoms. Return to ER as needed as discussed. - My Orders Last 24 Hours: My Active Orders 04/13/17 11:03 OB 1st Tri Sgl 1st Gest [US] Stat - Assessment/Plan Last 24 Hours: My Active Orders 04/13/17 11:03 OB 1st Tri Sgl 1st Gest [US] Stat
--- NOTE | 2017-04-14 07:02 | US ---
EXAM DATE: 04/13/17 PATIENT'S AGE: 21 Patient: HARINI SÁNCHEZ Facility: [place], [place] Site . Site : 1995 Study: US OB Pelvis -04/13/2017 12:09:25 PM Ordering Physician: Doctor Silva Final Report: INDICATION: Vaginal bleeding. . TECHNIQUE: Ultrasound OB transabdominal. COMPARISON: Obstetrical ultrasound 04/06/2017. FINDINGS: Single live intrauterine is seen. Yolk sac and pole identified. [place]-rump length of 1.1 cm gives an estimated gestational age of 7 weeks 2 days. heart rate 120 beats per minute. 4.3 cm simple appearing right ovarian cyst is seen, unchanged. There is a small amount of free fluid with right adnexa that is likely physiologic. The left ovary is unremarkable. No other significant findings. IMPRESSION: 1. Single live intrauterine with estimated gestational age of 7 weeks 2 days +/- 1 week with estimated date of delivery of 11/28/2017. There has been appropriate interval growth since the prior study. 2. Stable 4.3 cm simple cyst right ovary. Likely physiologic, but followup to confirm resolution is recommended. Small amount of free fluid within the right adnexa is likely physiologic. 3. Otherwise unremarkable. Dictated by Rafal Hewitt MD @ Apr 13 2017 12:28PM (Electronic Signature) Report Signed by Proxy. KACIE
== END 2017-04-13 13:07 | disposition home or self-care (01) ==
LOC: MW.ED 10:34
DX: O20.9 Hemorrhage in early pregnancy, unspecified (principal); O99.511 Diseases of the respiratory system complicating pregnancy, first trimester; J45.909 Unspecified asthma, uncomplicated; Z79.899 Other long term (current) drug therapy; Z88.0 Allergy status to penicillin; Z88.1 Allergy status to other antibiotic agents; Z3A.01 Less than 8 weeks gestation of pregnancy
CPT/HCPCS: 36415; 76801; 76801-26; 81001; 84702; 85025; 99283; 99284-25

== ENCOUNTER 2017-04-17 17:18 | Day surgery (SDC) | payer BC, MEDICAID ==
--- NOTE | 2017-04-17 18:38 | PCM.PREANE ---
Preanesthetic Assessment - Procedure Proposed Procedure: Ectopic with additional uterine - Anesthesia/Transfusion/Family Hx Anesthesia History: Prior Anesthesia Without Reaction Family History of Anesthesia Reaction: No Transfusion History: No Prior Transfusion(s) Intubation History: Unknown - Review of Systems General: No Symptoms, Other () Pulmonary: No Symptoms Cardiovascular: No Symptoms Gastrointestinal: No Symptoms Neurological: No Symptoms Other: Reports: None - Physical Assessment NPO Status Date: 04/17/17 NPO Status Time: 11:30 O2 Sat by Pulse Oximetry: 100 Respiratory Rate: 16 Vital Signs: Last Vital Signs Temp 98.6 F 04/17/17 18:20 Pulse 83 04/17/17 18:20 Resp 16 04/17/17 18:20 BP 108/52 L 04/17/17 18:20 Pulse Ox 100 04/17/17 18:20 ASA Class: 2E Mental Status: Alert & Oriented x3 Airway Class: Mallampati = 2 Dentition: Reports: Normal Dentition Thyro-Mental Finger Breadths: 3 Mouth Opening Finger Breadths: 3 ROM/Head Extension: Full Lungs: Clear to Auscultation, Normal Respiratory Effort Cardiovascular: Regular Rate, Regular Rhythm - Allergies Allergies/Adverse Reactions: Allergies Allergy/AdvReac Type Severity Reaction Status Date / Time amoxicillin trihydrate Allergy Rash Verified 04/13/17 10:46 [From Augmentin] Penicillins Allergy Rash Verified 04/13/17 10:46 potassium clavulanate Allergy Rash Verified 04/13/17 10:46 [From Augmentin] - Blood Blood Available: No Product(s) Available: None - Anesthesia Plan Free Text/Narrative:: GETA - will avoid versed and maintain normal BP/HR - Acknowledgements Anesthesia Type Planned: General Anesthesia Pt an Appropriate Candidate for the Planned Anesthesia: Yes Alternatives and Risks of Anesthesia Discussed w Pt/Guardian: Yes Pt/Guardian Understands and Agrees with Anesthesia Plan: Yes PreAnesthesia Questionnaire - Past Health History Medical/Surgical History: Denies Medical/Surgical History HEENT History: Reports: Allergic Rhinitis, Other (See Below) Other HEENT History: wears glasses Cardiovascular History: Reports: None Respiratory History: Reports: Asthma (uses albuterol x1/wk), Other (See Below) Other Respiratory History: Seasonal Allergies Gastrointestinal History: Reports: None Genitourinary History: Reports: None 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 (See Below) Other OB/BYN History: Musculoskeletal History: Reports: None Neurological History: Reports: None Psychiatric History: Endocrine/Metabolic History: Reports: Obesity/BMI 30+ Hematologic History: Reports: None Immunologic History: Reports: None Oncologic (Cancer) History: Reports: None Dermatologic History: Reports: None - Past Surgical History Head Surgeries/Procedures: Reports: None HEENT Surgical History: Reports: Tonsillectomy Cardiovascular Surgical History: Reports: None GI Surgical History: Reports: None Female Surgical History: Reports: None, Other (See Below) Other Female Surgeries/Procedures: D & C Neurological Surgical History: Reports: None Musculoskeletal Surgical History: Reports: None Oncologic Surgical History: Reports: None Dermatological Surgical History: Reports: None - SUBSTANCE USE Smoking Status *Q: Never Smoker Second Hand Smoke Exposure: No Recreational Drug Use History: No Recreational Drug Type: Reports: Marijuana/Hashish - HOME MEDS Home Medications: Home Meds Fluticasone/Salmeterol [Advair 250-50 Diskus] 1 puff INH DAILY 02/04/15 [History ] Loratadine [Claritin] 10 mg PO DAILY 02/04/15 [History] Montelukast [Singulair] 10 mg PO BEDTIME PRN 02/04/15 [History] Albuterol [IMW: Albuterol HFA] 2 puff INH ASDIRECTED PRN 11/15/16 [History] Vit W-Ca,Fe,FA(<1 mg) [ Vitamins] 1 each PO BEDTIME 04/13/17 [ History]
[2017-04-17] MEDS ORDERED: Rocuronium 10 MG/ML 10 ML Syringe ONE (18:46)
[2017-04-17] MEDS ORDERED: Propofol 200 MG/20 ML SDV ONE (18:46)
[2017-04-17] MEDS ORDERED: Ondansetron 4 MG/2 ML SDV ONE (18:46)
[2017-04-17] MEDS ORDERED: fentaNYL 250 MCG/5 ML SDV ONE (18:46)
[2017-04-17] MEDS ORDERED: Lidocaine 2% 5 ML SDV ONE (18:46)
[2017-04-17] MEDS ORDERED: Vasopressin 20 Units/1 ML MDV ONE (19:02)
[2017-04-17] MEDS ORDERED: Bupivacaine 0.25% 10 ML SDV ONE (19:03)
[2017-04-17] MEDS ORDERED: Succinylcholine/Normal Saline 200 MG/10 ML Syringe ONE (19:36)
[2017-04-17] MEDS ORDERED: HYDROmorphone 2 MG/ML SDV ONE ×2 (19:48→20:04)
[2017-04-17] MEDS ORDERED: Neostigmine Methylsulfate 1 MG/ML 5 ML Syringe ONE (20:58)
[2017-04-17] MEDS ORDERED: Glycopyrrolate 0.2 MG/ML SDV ONE (20:58)
[2017-04-17] MEDS ORDERED: fentaNYL 100 MCG/2 ML SDV ONE (21:01)
[2017-04-17] MEDS ORDERED: Acetaminophen 1,000 MG in Premix Bag 1 BAG IV PRN (21:09)
[2017-04-17] MEDS ORDERED: fentaNYL 100 MCG/2 ML SDV IVPUSH PRN (21:09)
--- NOTE | 2017-04-17 21:49 | PCM.OPNOTE ---
- General Post-Op/Procedure Note Date of Surgery/Procedure: 04/17/17 Operative Procedure(s): Operative laparoscopy with right salphingectomy Findings: Laparoscopy showed about 2/3rd of right tube distended with ectopic . normal left tube and ovary . Right ovary with 3cm cyst ( corpus luteum) Pre Op Diagnosis: Heterotropic - Intrauterine and Right ectopic Post-Op Diagnosis: Same Anesthesia Technique: General Mask Primary Surgeon: Ramona Chambers Pathology: Right tube with ectopic Fluid Replacement, Intraop: 2,700 Output, Urine Amount: 10 Complications: None Condition: Good
--- NOTE | 2017-04-17 22:01 | PCM.POSTAN ---
POST ANESTHESIA ASSESSMENT - MENTAL STATUS Mental Status: Alert, Oriented - VITAL SIGNS Pulse Rate: 79 SaO2: 97 Resp Rate: 14 Blood Pressure: 111/56 - RESPIRATORY Respiratory Status: Respiratory Rate WNL, Airway Patent, O2 Saturation Stable - CARDIOVASCULAR CV Status: Pulse Rate WNL, Blood Pressure Stable - GASTROINTESTINAL GI Status: No Symptoms - PAIN Pain Score: 0 - POST OP HYDRATION Hydration Status: Adequate & Stable - OBSERVATIONS Free Text/Narrative:: Pt stable - all vitals have been in normal range both during and post anesthesia. No nausea or pain reported at this time.
--- NOTE | 2017-04-17 22:15 | PCM48HPAN ---
Post Anesthesia Note - EVALUATION WITHIN 48HRS OF ANESTHETIC Vital Signs in Normal Range: Yes Patient Participated in Evaluation: Yes Respiratory Function Stable: Yes Airway Patent: Yes Cardiovascular Function Stable: Yes Hydration Status Stable: Yes Pain Control Satisfactory: Yes Nausea and Vomiting Control Satisfactory: Yes Pulse Rate: 79 Resp Rate: 14 Blood Pressure: 111/56 - COMMENTS/OBSERVATIONS Free Text/Narrative:: Pt stable in phase II with no anesthetic complications.
[2017-04-17] MEDS ORDERED: Ibuprofen 800 MG Tab PO PRN (22:29)
[2017-04-17] MEDS ORDERED: Acetaminophen/oxyCODONE 325-5 MG Tab PO PRN (22:31)
[2017-04-17] MEDS: Ondansetron 4 MG/2 ML SDV IVPUSH PRN (23:51)
[2017-04-18] MEDS: Ondansetron 4 MG/2 ML SDV IVPUSH PRN (07:27)
--- NOTE | 2017-04-18 09:15 | US ---
EXAMINATION: Transvaginal static ultrasound HISTORY: COMPARISON: 04/13/2017 TECHNIQUE: GGrayscale, M-mode, and color Doppler imaging obtained. FINDINGS: There is a single live intrauterine noted with a crown-rump length of 1.2 cm. Thi s gives an estimated gestational age at 7 weeks and 3 days and an estimated date of delivery at 12/02. The heart rate is 139 bpm. There is mildly heterogeneous hypoechoic collection adjacent to the gestational sac with mild internal color Doppler flow. This is not well characterized on the p rior ultrasound. The left ovary is normal in size contour, and echogenicity. There is a stable 4 cm right adnexal cyst . IMPRESSION: 1. Single live intrauterine . 2. Hypoechoic heterogeneous collection adjacent to the gestational sac, possibly a small subchorionic hemorrhage and prominent uterine vasculature. Follow-up may be beneficial. 3. Stable 4 cm right adnexal cyst.
[2017-04-18 09:43] VITALS: BP 102/57
--- NOTE | 2017-04-22 13:08 | OR ---
SURGEON: CRISPIN BRYANT DATE OF PROCEDURE: 04/17/2017 PREOPERATIVE DIAGNOSIS: Heterotopic ( Intrauterine and Right Ectopic) POSTOPERATIVE DIAGNOSIS: Heterotopic (( Intrauterine and Right Ectopic) PROCEDURE: Laparoscopic right salpingectomy. ANESTHESIA: General. PATHOLOGY: Right tubal ESTIMATED BLOOD LOSS: 5 mL. COMPLICATIONS: None. FINDINGS: Laparoscopy: Normal uterus, normal left tube and ovary and there was a right ovarian cyst ( 4cm), Distented right fallopian tube with ectopic occupying about 2/3rd of entire tube BRIEF HISTORY ABOUT THE PATIENT: 21yo at 7 weeks who presented for a new OB visit. She was seen in ER previously with complains of vaginal bleeding, impression was threatened . she was seen in clinic today to establish care. She had a sonogram performed which showed a live Intrauterine and right ectopic . patient was clinically stable. she was informed that she will need an immediate laparoscopic right salphingectomy for maternal well being PROCEDURE: The patient was taken to the operating room where general anesthesia was performed without difficulty. The patient was placed in the dorsal lithotomy position with Clayton stirrups. The patient was prepared and draped in the normal sterile fashion. A Dhaliwal catheter was inserted to empty the bladder. A sponge stick was placed in the vagina to help manipulate the uterus.Attention was then paid to the abdomen. Marcaine was injected into the subumbilical fold. A 5mm incision was then made. The trocar was then inserted into the abdomen under direct visualization.Entry was confirmed via visualization and a low pressure of 6mmhg. CO2 was then insufflated to create a pneumoperitoneum to a pressure of 15mmg. Patient was then put in trendelenburg position to facilitate pelvic exposure. A right lower quadrant incision was also made and the trocar was also placed, Additionally, a suprapubic port was placed 2 fingerbreadth from the pubic symphysis. The right tube was then sequentially coagulated and cut with the ligature device and transected from the cornua. A 10 mm trocar was then placed in the suprapubic port and an EndoCatch bag was placed in. The specimen was placed in the bag and removed from the abdomen. Hemostasis was noted. The trocars were removed under direct visualization. All instruments and pad count were correct x2. The fascia of the suprapubic incision was closed with 0 Vicry. The skin incision was closed with 3-0 Monocryl in a subcuticular fashion. The patient was taken to the recovery room in stable condition. She will have a repeat ultrasound in the morning to confirm viability of intrauterine . ROYAL KHANNA /[id number] MTDD
== END 2017-04-18 11:00 | disposition home or self-care (01) ==
LOC: MW.ICU 17:18 → MW.SDS 17:18 → MW.ICU 22:00 → UNDOADMOB 22:00 → MW.SDS 22:00 → UNDODISOB 04-18 11:00 → MW.SDS 04-18 11:00
PROVIDERS: ATTEND Obstetrics & Gynecology
DX: O00.101 Right tubal pregnancy without intrauterine pregnancy (principal); J45.909 Unspecified asthma, uncomplicated; Z88.0 Allergy status to penicillin; Z88.1 Allergy status to other antibiotic agents; Z88.8 Allergy status to other drugs, medicaments and biological substances; Z79.899 Other long term (current) drug therapy
CPT/HCPCS: 36415; 59151; 76817; 86850; 86900; 86901; 86920; 86921; 86922; 88305; A9270; J1170; J2405; J3010; 00840; J2704

== ENCOUNTER 2019-11-01 18:37 | Emergency (ER) | payer OTHER ==
--- NOTE | 2019-11-01 19:11 | EDM.PDOC ---
ED HPI GENERAL MEDICAL PROBLEM - General Chief Complaint: Respiratory Problem Stated Complaint: COUGH, FEVER, DIFFICULTY BREATHING Time Seen by Provider: 11/01/19 18:39 Source of Information: Reports: Patient History Limitations: Reports: No Limitations - History of Present Illness INITIAL COMMENTS - FREE TEXT/NARRATIVE: HISTORY AND PHYSICAL: History of present illness: Patient is a 24-year-old female who presents to the emergency room with complaints of cough, shortness of breath, pleuritic chest pain, body aches and subjective fevers. Symptoms started approximately 1 week ago and progressively getting worse. She was seen and swabbed for COVID-19 a few days ago, has not received these results. She states the cough is nonproductive. She does have a history of asthma and cannot tell if her symptoms are worsened because of that or if it is from the illness she presently has. Chest pain is only noticeable when she is coughing "pretty hard" and resolves immediately after coughing is over. Patient denies any neck pain/stiffness, change in vision, syncope or near syncope. Denies any back pain, abdominal pain, nausea, vomiting, diarrhea, constipation or dysuria. Denies any chance of . Has not noted any blood in urine or stool. Patient has been eating and drinking appropriately. Review of systems: As per history of present illness and below otherwise all systems reviewed and negative. Past medical history: As per history of present illness and as reviewed below otherwise noncontributory. Surgical history: As per history of present illness and as reviewed below otherwise noncontributory. Social history: See social history for further information Family history: As per history of present illness and as reviewed below otherwise noncon tributory. Physical exam: General: Well developed and well nourished. Alert and orientated x 3. Nontoxic in appearance and in no acute distress. Vital signs are stable and have been reviewed by me. Nursing notes were reviewed. HEENT: Atraumatic, normocephalic, pupils equal and reactive bilaterally, negative for conjunctival pallor or scleral icterus, mucous membranes moist, TMs normal bilaterally, throat clear, neck supple, nontender, trachea midline. No drooling or trismus noted. No meningeal signs. No hot potato voice noted. Lungs: Clear to auscultation, breath sounds equal bilaterally, chest nontender. Normal work of breathing, no accessory muscles used. Heart: S1S2, regular rate and rhythm without overt murmur Abdomen: Soft, nondistended, nontender. Negative for masses or hepatosple nomegaly. Negative for costovertebral tenderness. Skin: Intact, warm, dry. No lesions or rashes noted. Hematologic: No petechiae or purpra. Mucosa appropriate color and normal nail bed color and refill. Extremities: Atraumatic, moves all extremities per self without difficulty or deficits, negative for cords or calf pain. Neurovascular unremarkable. Neuro: Awake, alert, oriented. Cranial nerves II through XII unremarkable. Cerebellum unremarkable. Motor and sensory unremarkable throughout. Exam nonfocal. Psychiatric: Mood and affect are appropriate. Normal thought process. Answering questions appropriately. Notes: Chest x-ray shows patchy areas of increased density in the left upper chest most likely representing pneumonia either bacterial or viral. Patient is COVID-19 positive. I have spoken with the patient and discussed today's findings, in addition to providing specific details for plan of care. Reassessment at the time of disposition demonstrates that the patient is in no acute distress. The patient has remained stable throughout the entire ED visit and is without objective evidence for acute process requiring urgent intervention or hospitalization. The patient is stable for discharge, counseling was provided and we discussed in great detail signs and symptoms that would prompt them to return to the Emergency Department. Medication, follow up and supportive care measures were reviewed and discussed. Voices understanding and is agreeable to plan of care. Denies any further questions or concerns at this time. Diagnostics: CXR, COVID-19 Therapeutics: None Prescription: Phenergan with Codeine Impression: COVID-19 Plan: 1. Your COVID-19 screening is positive. That means you do have the coronavirus and are considered contagious. Your vital signs and oxygen saturation are well enough that you were able to monitor your symptoms at home. Continue to monitor for trouble breathing, new confusion or inability to arouse, bluish lips or face or any of the other symptoms we discussed -if this occurs please return to the emergency room. 2. Please self quarantine over the next 2 weeks. Inform any persons that you have been in contact with since you started becoming symptomatic that you have tested positive; they should be made aware and take the appropriate steps as needed. 3. Take the medications as we prescribed as discussed. You can take Phenergan with codeine during the evening to help get a restful night sleep. 4. You may alternate Tylenol and ibuprofen as needed for pain and fever management. 5. The [facility] department will be calling you and following up with you. The [facility] Hotline phone number , They are open Friday - Friday 7am - 7pm. Follow up with your primary care provider for re-evaluation and re-testing after the 2 week quarantine and discuss when you should be seen. Definitive disposition and diagnosis as appropriate pending reevaluation and review of above. breathing pain Pain Score (Numeric/FACES): 8 - Related Data Allergies Allergy/AdvReac Type Severity Reaction Status Date / Time amoxicillin trihydrate Allergy Rash Verified 11/01/19 18:41 [From Augmentin] Penicillins Allergy Rash Verified 11/01/19 18:41 potassium clavulanate Allergy Rash Verified 11/01/19 18:41 [From Augmentin] Home Meds: Home Meds Loratadine [Claritin] 10 mg PO DAILY 02/04/15 [History] Montelukast [Singulair] 10 mg PO BEDTIME PRN 02/04/15 [History] Albuterol [IMW: Albuterol HFA] 2 puff INH ASDIRECTED PRN 11/15/16 [History] Fluticasone/Vilanterol [Breo Ellipta 100-25 MCG Inhalation Kit] 1 puff INH DAILY 11/01/19 [History] Past Medical History - Past Health History Medical/Surgical History: Denies Medical/Surgical History HEENT History: Reports: Allergic Rhinitis, Other (See Below) Other HEENT History: wears glasses Cardiovascular History: Reports: None Respiratory History: Reports: Asthma, Other (See Below) Other Respiratory History: Seasonal Allergies Gastrointestinal History: Reports: None Genitourinary History: Reports: None 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 (See Below) Other ENCHILADA MAKER History: , fallopian tube removal Musculoskeletal History: Reports: None Neurological History: Reports: None Psychiatric History: Reports: Depression Other Psychiatric History: Not on meds Endocrine/Metabolic History: Reports: Obesity/BMI 30+ Hematologic History: Reports: None Immunologic History: Reports: None Oncologic (Cancer) History: Reports: None Dermatologic History: Reports: None - Infectious Disease History Infectious Disease History: Reports: Chicken Pox - Past Surgical History Head Surgeries/Procedures: Reports: None HEENT Surgical History: Reports: Tonsillectomy Cardiovascular Surgical History: Reports: None GI Surgical History: Reports: None Female Surgical History: Reports: None, Other (See Below) Other Female Surgeries/Procedures: D & C Neurological Surgical History: Reports: None Musculoskeletal Surgical History: Reports: None Oncologic Surgical History: Reports: None Dermatological Surgical History: Reports: None Social & Family History - Family History Family Medical History: Noncontributory HEENT: Reports: None Cardiac: Reports: None Respiratory: Reports: None GI: Reports: None Neurological: Reports: None Psychiatric: Reports: None Dermatologic: Reports: None Oncologic: Reports: None - Caffeine Use Caffeine Use: Reports: Energy Drinks - Recreational Drug Use Recreational Drug Type: Reports: Marijuana/Hashish ED ROS GENERAL - Review of Systems Review Of Systems: Comprehensive ROS is negative, except as noted in HPI. ED EXAM, GENERAL - Physical Exam Exam: See Below (See dictation) Course - Vital Signs Last Recorded V/S: Last Vital Signs Temp 101.0 F H 11/01/19 18:44 Pulse 103 H 11/01/19 18:44 Resp 20 11/01/19 18:44 BP 134/70 11/01/19 18:44 Pulse Ox 97 11/01/19 18:44 - Orders/Labs/Meds Orders: Active Orders 24 hr Category Date Time Status CORONAVIRUS COVID-19 PCR PHL Stat Lab 11/01/19 19:19 Ordered Labs: Laboratory Tests 11/01/19 Range/Units 19:00 SARS CoV-2 RNA Rapid NEEL POSITIVE H (NEGATIVE) Meds: Medications Discontinued Medications Generic Name Dose Route Start Last Admin Trade Name Marissa PRN Reason Stop Dose Admin Ketorolac Tromethamine 60 mg 11/01/19 19:30 Toradol IM 11/01/19 19:31 ONETIME ONE Departure - Departure Time of Disposition: 19:58 Disposition: Home, Self-Care 01 Clinical Impression: COVID-19 - Discharge Information Instructions: COVID-19 Referrals: Austin Beasley MD [Primary Care Provider] - Forms: ED Department Discharge Additional Instructions: The following information is given to patients seen in the emergency department who are being discharged to home. This information is to outline your options for follow-up care. We provide all patients seen in our emergency department with a follow-up referral. The need for follow-up, as well as the timing and circumstances, are variable depending upon the specifics of your emergency department visit. If you don't have a primary care physician on staff, we will provide you with a referral. We always advise you to contact your personal physician following an emergency department visit to inform them of the circumstance of the visit and for follow-up with them and/or the need for any referrals to a consulting specialist. The emergency department will also refer you to a specialist when appropriate. This referral assures that you have the opportunity for follow-up care with a specialist. All of these measure are taken in an effort to provide you with optimal care, which includes your follow-up. Under all circumstances we always encourage you to contact your private physician who remains a resource for coordinating your care. When calling for follow-up care, please make the office aware that this follow-up is from your recent emergency room visit. If for any reason you are refused follow-up, please contact the [facility] Emergency Department at and asked to speak to the emergency department charge nurse. [facility] [address] [place] [address] [place] [address] Thank you for choosing the [facility] emergency department in [place] for your medical needs today. It was a pleasure caring for you. Today you were seen in the emergency department for respiratory symptoms. 1. Your COVID-19 screening is positive. That means you do have the coronavirus and are considered contagious. Your vital signs and oxygen saturation are well enough that you were able to monitor your symptoms at home. Continue to monitor for trouble breathing, new confusion or inability to arouse, bluish lips or face or any of the other symptoms we discussed -if this occurs please return to the emergency room. 2. Please self quarantine over the next 2 weeks. Inform any persons that you have been in contact with since you started becoming symptomatic that you have tested positive; they should be made aware and take the appropriate steps as needed. 3. Take the medications as we prescribed as discussed. You can take Phenergan with codeine during the evening to help get a restful night sleep. 4. You may alternate Tylenol and ibuprofen as needed for pain and fever management. 5. The [facility] department will be calling you and following up with you. The [facility] Hotline phone number , They are open Friday - Friday 7am - 7pm. Follow up with your primary care provider for re-evaluation and re-testing after the 2 week quarantine and discuss when you should be seen. Sepsis Event Note (ED) - Evaluation Sepsis Screening Result: No Definite Risk - Focused Exam Vital Signs: Vital Signs Temp Pulse Resp BP Pulse Ox 11/01/19 18:44 101.0 F H 103 H 20 134/70 97 - My Orders Last 24 Hours: My Active Orders 11/01/19 19:19 CORONAVIRUS COVID-19 PCR PHL Stat - Assessment/Plan Last 24 Hours: My Active Orders 11/01/19 19:19 CORONAVIRUS COVID-19 PCR PHL Stat
--- NOTE | 2019-11-01 19:28 | CR ---
Chest: Portable view of the chest was obtained. Comparison: No prior chest imaging is available. Patchy areas of increased density within the left upper chest is seen. Lungs otherwise are clear. Heart size and mediastinum are within normal limits for portable technique. Bony structures are grossly intact. Impression: 1. Patchy areas of increased density of the left upper chest most likely representing pneumonia, either bacterial or viral. 2. No additional abnormality is appreciated on portable chest x-ray. Diagnostic code #5 This report was dictated in MDT
[2019-11-01] MEDS ORDERED: Ketorolac 60 MG/2 ML SDV IM ONE (19:30)
[2019-11-01 20:00] VITALS: BP 112/51; PULSE 94
== END 2019-11-01 20:15 | disposition home or self-care (01) ==
LOC: MW.ED 18:37
DX: U07.1 COVID-19 (principal); J45.909 Unspecified asthma, uncomplicated; E66.9 Obesity, unspecified; Z68.42 Body mass index [BMI] 45.0-49.9, adult; Z90.89 Acquired absence of other organs; Z88.1 Allergy status to other antibiotic agents; Z88.0 Allergy status to penicillin; Z79.899 Other long term (current) drug therapy
CPT/HCPCS: 71045; 87635; 96372; 99285; J1885; 99283; U0002

== ENCOUNTER 2024-05-27 15:56 | Emergency (ER) | payer OTHER ==
[2024-05-27] MEDS: predniSONE 20 MG Tab PO STA (16:57)
[2024-05-27] MEDS: Acetaminophen/oxyCODONE 325-5 MG Tab PO ONE (16:57)
[2024-05-27] MEDS: Ondansetron 4 MG Tab.DIS PO ONE (16:58)
[2024-05-27 17:33] VITALS: BP 110/76; PULSE 70
== END 2024-05-27 17:33 | disposition home or self-care (01) ==
LOC: MW.ED 15:56
DX: M54.42 Lumbago with sciatica, left side (principal); E66.9 Obesity, unspecified; Z75.3 Unavailability and inaccessibility of health-care facilities; Z88.0 Allergy status to penicillin; Z88.8 Allergy status to other drugs, medicaments and biological substances; Z79.899 Other long term (current) drug therapy; Z68.31 Body mass index [BMI] 31.0-31.9, adult
CPT/HCPCS: 99283; A9270; 99282

== ENCOUNTER 2024-08-24 14:53 | Emergency (ER) | payer OTHER ==
[2024-08-24 15:06] VITALS: BP 126/64; PULSE 74
[2024-08-24 15:23] LABS: APPEARANCE,URINE SLT CLOUDY; GLUCOSE,URINE NEGATIVE (NEGATIVE); OCCULT BLOOD,URINE LARGE (NEGATIVE)
[2024-08-24 15:37] LABS: EPITHELIAL CELLS,URINE FEW (NONE-FEW)
== END 2024-08-24 15:48 | disposition home or self-care (01) ==
LOC: MW.ED 14:53
DX: N39.0 Urinary tract infection, site not specified (principal); Z75.3 Unavailability and inaccessibility of health-care facilities; Z88.0 Allergy status to penicillin; Z88.8 Allergy status to other drugs, medicaments and biological substances; Z79.51 Long term (current) use of inhaled steroids; Z79.899 Other long term (current) drug therapy
CPT/HCPCS: 81001; 81025; 87086; 99284

== ENCOUNTER 2024-10-29 11:49 | Emergency (ER) | payer OTHER ==
[2024-10-29 11:58] VITALS: BP 121/62; PULSE 60
[2024-10-29] MEDS: Fluorescein 1 MG Ophth Strip EYERT ONE (12:17)
== END 2024-10-29 12:44 | disposition home or self-care (01) ==
LOC: MW.ED 11:49
DX: S05.01XA Injury of conjunctiva and corneal abrasion without foreign body, right eye, initial encounter (principal); Z88.8 Allergy status to other drugs, medicaments and biological substances; Z88.0 Allergy status to penicillin; Z79.899 Other long term (current) drug therapy; W22.8XXA Striking against or struck by other objects, initial encounter; Y93.89 Activity, other specified
CPT/HCPCS: 99283